=== PATIENT | female | born 1995 | race Caucasian/White ===

== ENCOUNTER 2017-02-01 10:27 | Emergency (ER) | payer BC, OTHER ==
[~2017-02-01] VITALS: Ht 162.6 cm; Wt 42.8 kg
[~2017-02-01 10:27] MED LIST: AZIT250T; MEDR150V
[2017-02-01] MEDS ORDERED: SODIUM CHLORIDE 0.9% 1,000ML IVBOLUS ONE (12:00)
[2017-02-01 12:35] LABS: BLOOD UREA NITROGEN 7 mg/dL (7-18)
[2017-02-01 12:38] LABS: ASPARTATE AMINO TRANSFERASE 45 U/L (15-37)
[2017-02-01 12:40] LABS: ACETAMINOPHEN < 2 mcg/mL (10-30)
[2017-02-01 13:17] LABS: DAU SCREEN DISCLAIMER
[2017-02-01 13:26] LABS: HCG UR OBC PASS
[2017-02-01 14:21] VITALS: BP 131/84
== END 2017-02-01 16:04 | disposition home or self-care (01) ==
LOC: ED 15:36
DX: F10.229 Alcohol dependence with intoxication, unspecified (principal); F15.229 Other stimulant dependence with intoxication, unspecified; F14.229 Cocaine dependence with intoxication, unspecified
CPT/HCPCS: 36415; 80053; 80307; 80329; 81025; 82140; 85025; 96360; 99284; J7030; G0480

== ENCOUNTER 2017-07-09 17:14 | Emergency (ER) | payer BC ==
[~2017-07-09] VITALS: Ht 162.6 cm; Wt 50.0 kg
[2017-07-09 17:19] VITALS: BP 99/69
[2017-07-09 17:54] LABS: HEMATOCRIT 39.1 % (34.6-47.8); HEMOGLOBIN 13.2 g/dL (11.7-16.4); WHITE BLOOD COUNT 5.6 x10^3/uL (3.4-10)
[2017-07-09 18:06] LABS: ASPARTATE AMINO TRANSFERASE 20 U/L (15-37); BLOOD UREA NITROGEN 8 mg/dL (7-18)
[2017-07-09 18:12] LABS: DAU SCREEN DISCLAIMER
[2017-07-09 18:28] LABS: ACETAMINOPHEN < 2 mcg/mL (10-30)
[2017-07-09] MEDS ORDERED: orthotricycline PO (20:50)
[2017-07-09] MEDS ORDERED: HYDR10TA4 PO (20:51)
[2017-07-09] MEDS ORDERED: KETOROLAC 30 MG/1 ML IVPush ONE (23:30)
== END 2017-07-09 23:54 | disposition home or self-care (01) ==
LOC: ED 20:34
DX: F10.120 Alcohol abuse with intoxication, uncomplicated (principal); Z88.0 Allergy status to penicillin; Z88.8 Allergy status to other drugs, medicaments and biological substances
CPT/HCPCS: 36415; 80053; 80307; 80329; 84702; 84703; 85025; 99284; G0479; G0480

== ENCOUNTER 2017-12-11 03:29 | Emergency (ER) | payer BC ==
[~2017-12-11] VITALS: Ht 162.6 cm; Wt 54.0 kg
[~2017-12-11 03:29] MED LIST changes: +HYDR10TA4 PO; +orthotricycline PO
[2017-12-11 05:30] VITALS: BP 119/74
== END 2017-12-11 05:32 | disposition home or self-care (01) ==
LOC: ED 05:14
DX: S06.320A Contusion and laceration of left cerebrum without loss of consciousness, initial encounter (principal); S06.310A Contusion and laceration of right cerebrum without loss of consciousness, initial encounter; Y04.0XXA Assault by unarmed brawl or fight, initial encounter; Y93.89 Activity, other specified; Y92.488 Other paved roadways as the place of occurrence of the external cause; Y99.8 Other external cause status
CPT/HCPCS: 70450; 70486; 72125; 99284

== ENCOUNTER → 2018-05-11 | Outpatient (CLI) | payer BC | END | disposition home or self-care (01) | LOC: RAD 13:33 | PROVIDERS: ATTEND Physician Assistant Surgical | DX: S92.001A Unspecified fracture of right calcaneus, initial encounter for closed fracture (principal); X58.XXXA Exposure to other specified factors, initial encounter; Y93.89 Activity, other specified; Y92.89 Other specified places as the place of occurrence of the external cause; Y99.8 Other external cause status ==